=== PATIENT | female | born 1975 | race African-American/Black ===

== ENCOUNTER 2016-07-12 09:50 | Emergency (ER) | payer OTHER ==
[2016-07-12] MEDS ORDERED: SODIUM CHLORIDE 0.9% 1,000 ML ONE (12:57)
[2016-07-12] MEDS ORDERED: METOCLOPRAMIDE 10 MG/2 ML VIAL ONE (12:57)
[2016-07-12] MEDS ORDERED: DIPHENHYDRAMINE 50 MG/ML VIAL ONE (12:57)
[2016-07-12] MEDS ORDERED: KETOROLAC 30 MG/ML VIAL ONE (14:18)
== END 2016-07-12 15:09 | disposition home or self-care (01) ==
LOC: ER 09:50
DX: R51 Headache (principal); Z79.899 Other long term (current) drug therapy; Z79.84 Long term (current) use of oral hypoglycemic drugs
CPT/HCPCS: 70450 ×2; 96361 ×2; 96374 ×2; 96375 ×2; 99284; J1885